=== PATIENT | female | born 1980 | race American Indian/Alaskan Native ===

== ENCOUNTER 2022-12-05 17:22 | Emergency (ER) | payer MEDICAID ==
[~2022-12-05] VITALS: Ht 160 cm; Wt 44.1 kg
[2022-12-05 18:06] VITALS: BP 115/76
[2022-12-05] MEDS ORDERED: bacitracin 15gm ointment TP ONE (19:50)
[2022-12-05] MEDS ORDERED: TETanus/Pertussis (Acell)/Diphther VAC/PF (Tdap-Adult) 0.5ml syringe IMVAC ONE (19:50)
[2022-12-05] MEDS ORDERED: CLIN-97 PO (20:00)
[2022-12-05] MEDS ORDERED: clindamycin 150mg capsule PO ONE (20:00)
== END 2022-12-05 20:13 | disposition home or self-care (01) ==
LOC: ER 17:24
DX: S90.852A Superficial foreign body, left foot, initial encounter (principal); Z91.040 Latex allergy status; Z79.899 Other long term (current) drug therapy; L02.612 Cutaneous abscess of left foot; W45.8XXA Other foreign body or object entering through skin, initial encounter; Y93.89 Activity, other specified; Y92.89 Other specified places as the place of occurrence of the external cause; Y99.8 Other external cause status
CPT/HCPCS: 73630; 90471; 90715; 99283; 99284

== ENCOUNTER 2023-01-02 17:40 | Emergency (ER) | payer MEDICAID ==
[~2023-01-02] VITALS: Ht 160 cm; Wt 45.0 kg
[~2023-01-02 17:40] MED LIST: CLIN-97 PO
[2023-01-02 17:47] VITALS: BP 124/77
[2023-01-02] MEDS ORDERED: predniSONE 20 mg tablet PO ONE (20:10)
[2023-01-02] MEDS ORDERED: albuterol 2.5 MG/3 ML nebule NEB ONE (20:10)
[2023-01-02] MEDS ORDERED: PRED10TA PO (20:12)
[2023-01-02] MEDS ORDERED: ALBU8HFA PO (20:12)
[2023-01-02] MEDS ORDERED: GUAI400T92 PO (20:12)
== END 2023-01-02 20:33 | disposition home or self-care (01) ==
LOC: ER 17:41
DX: R05.9 Cough, unspecified (principal); R07.9 Chest pain, unspecified; F17.200 Nicotine dependence, unspecified, uncomplicated; J44.9 Chronic obstructive pulmonary disease, unspecified; Z91.040 Latex allergy status; Z88.8 Allergy status to other drugs, medicaments and biological substances; Z79.899 Other long term (current) drug therapy
CPT/HCPCS: 71045; 94640; 99283; J7512; 94760

== ENCOUNTER 2023-01-04 08:16 | Emergency (ER) | payer MEDICAID ==
[~2023-01-04] VITALS: Ht 160 cm; Wt 44.0 kg
[~2023-01-04 08:16] MED LIST changes: +ALBU8HFA PO; +GUAI400T92 PO; +PRED10TA PO
[2023-01-04] MEDS ORDERED: ondansetron/PF 4mg/2ml inj IV ONE (09:35)
[2023-01-04] MEDS ORDERED: famotidine/PF 10 mg/ml inj IV ONE (09:35)
[2023-01-04] MEDS ORDERED: diphenhydrAMINE 50 mg/ml inj IV ONE (09:35)
[2023-01-04] MEDS ORDERED: normal saline 1000ml 1,000 ML IV ONE ×2 (09:35→10:45)
[2023-01-04 10:40] LABS: BASOPHILS % (AUTO) 0.2 % (0-1); EOSINOPHILS # (AUTO) 0.1 X10'3 (0-0.9); EOSINOPHILS % (AUTO) 0.5 % (0-6); HEMATOCRIT 41.5 % (35.0-45.0); HEMOGLOBIN 13.6 g/dl (12.0-16.0); LYMPHOCYTES # (AUTO) 3.8 X10'3 (1.1-4.8); LYMPHOCYTES % (AUTO) 23.1 % (21-51); MEAN CORPUSCULAR HEMOGLOBIN 29.5 PG (27.0-31.0); MEAN CORPUSCULAR HGB CONC 32.7 g/dL (33.0-36.5); MEAN CORPUSCULAR VOLUME 90.1 FL (78-98); MEAN PLATELET VOLUME 7.3 FL (7.4-10.4); MONOCYTES # (AUTO) 1.5 X10'3 (0-0.9); MONOCYTES % (AUTO) 9.3 % (2-12); NEUTROPHILS % (AUTO) 66.9 % (42-75); PLATELET COUNT 266 X10'3 (140-440); RED BLOOD COUNT 4.61 X10'6 (4.20-5.60); RED CELL DISTRIBUTION WIDTH 13.4 % (11.5-14.5); WHITE BLOOD COUNT 16.5 X10'3 (4.5-11.0)
[2023-01-04 10:48] LABS: ALANINE AMINOTRANSFERASE 20 U/L (12-78); ALBUMIN 3.3 G/DL (3.4-5.0); ALBUMIN/GLOBULIN RATIO 1.1 (1.1-1.5); ALKALINE PHOSPHATASE 68 IU/L (46-116); ANION GAP 11 (8-16); ASPARTATE AMINO TRANSFERASE 22 U/L (10-37); BILIRUBIN,TOTAL 0.3 MG/DL (0.1-1.0); BLOOD UREA NITROGEN 9 MG/DL (7-18); BUN/CREATININE RATIO 10.3 (10.0-20.0); CALCIUM 8.3 MG/DL (8.5-10.1); CHLORIDE 112 MMOL/L (99-107); CREATININE 0.87 MG/DL (0.40-0.90); GLUCOSE 90 MG/DL (70-104); POTASSIUM 3.2 MMOL/L (3.5-5.1); SODIUM 145 MMOL/L (135-145); TOTAL CARBON DIOXIDE 22.3 MMOL/L (24-32); TOTAL PROTEIN 6.2 G/DL (6.4-8.2); eGFR 72 ML/MIN
[2023-01-04] MEDS ORDERED: meclizine 12.5mg tablet PO ONE (11:20)
[2023-01-04] MEDS ORDERED: ONDA4TAB12 PO (11:44)
[2023-01-04] MEDS ORDERED: AZIT250T2 PO (11:44)
[2023-01-04 12:01] VITALS: BP 113/78
== END 2023-01-04 12:03 | disposition home or self-care (01) ==
LOC: ER 08:17
DX: R42 Dizziness and giddiness (principal); E86.0 Dehydration; R11.2 Nausea with vomiting, unspecified; J44.9 Chronic obstructive pulmonary disease, unspecified; Z91.040 Latex allergy status; Z88.1 Allergy status to other antibiotic agents; Z88.2 Allergy status to sulfonamides
CPT/HCPCS: 36415; 80053; 84484; 85025; 93005; 96361; 96374; 96375; 99285; J1200; J2405; J3490; J7030; J8597

== ENCOUNTER 2025-02-07 14:51 | Emergency (ER) | payer MEDICAID ==
[~2025-02-07] VITALS: Ht 160 cm; Wt 57.2 kg
[~2025-02-07 14:51] MED LIST changes: -ALBU8HFA PO; +CLIN-224 PO; -CLIN-97 PO; +ONDA-243 PO
[2025-02-07 15:48] LABS: MEAN PLATELET VOLUME 7.0 FL (7.4-10.4); RED CELL DISTRIBUTION WIDTH 13.5 % (11.5-14.5)
[2025-02-07 15:50] LABS: LEUKOCYTE ESTERASE ,URINE NEGATIVE (Neg); NITRITES, URINE NEGATIVE (Neg); OCCULT BLOOD,URINE TRACE-INTACT (Neg)
[2025-02-07 15:53] LABS: UA COLLECTION TYPE CLN CATCH MIDSTREAM
[2025-02-07 15:56] LABS: CREATININE 0.84 MG/DL (0.40-0.90); TOTAL CARBON DIOXIDE 23.2 MMOL/L (24-32); eCRCL 72 ML/MIN; eGFR 74 ML/MIN
[2025-02-07 15:58] LABS: MUCUS STRANDS NONE SEEN /LPF (Neg); SQUAMOUS EPITHELIAL CELL,UR FEW /LPF (FEW)
[2025-02-07 16:14] LABS: BANDS% (MANUAL) 5.0 % (0-10); EOSINOPHILS % (MANUAL) 1.0 % (0-6); LYMPHOCYTES % (MANUAL) 12.0 % (21-51); MONOCYTES % (MANUAL) 3.0 % (2-12); NEUTROPHILS % (MANUAL) 79.0 % (42-75); PLATELET ESTIMATE NORMAL
--- NOTE | 2025-02-07 16:42 | RADIOLOGY REPORT ---
CHEST RADIOGRAPH REASON FOR EXAM: SOB COMPARISON: None TECHNIQUE: One view of the chest is provided FINDINGS: The cardiomediastinal silhouette is within normal limits for technique. There is no focal a irspace disease. There is no significant pleural effusion. No acute bony abnormality is identified. IMPRESSION: No radiographic evidence of acute cardiopulmonary process.
[2025-02-07 17:13] VITALS: TEMP 98.7
[2025-02-07 19:18] VITALS: BP 100/64; PULSE 88; RESP 16; O2SAT 99
--- NOTE | 2025-02-07 20:22 | Physician Documentation ---
History of Present Illness Chief Complaint: Flank Pain Stated Complaint: POSSIBLE MENEGITIS Time Seen by MD: 19:23 OK to notify your PCP?: Yes Primary Medical Doctor: BERTRAM HOGAN Source: patient, RN/MD, RN notes reviewed, old records Mode of Arrival: POV, Ambulatory Exam Limitations: no limitations Medication Reconciliation Allergies: Coded Allergies: latex (Verified Allergy, Intermediate, rash/blisters, 02/07/25) Uncoded Allergies: PENICILLIN (Allergy, Intermediate, rash, 12/05/22) SULFA (Allergy, Intermediate, hives, 12/05/22) IODINE (IV) (Allergy, Unknown, 12/05/22) Scheduled Clindamycin HCL* (Clindamycin HCL*), 1 CAP PO Q6H Guaifenesin (Guaifenesin), 1 TAB PO Q8H Prednisone (Prednisone), 0 PO DAILY Scheduled PRN ONDANSETRON ODT 4mg tablet (Ondansetron Odt), 1 TABLET PO Q6H PRN for nausea/vomiting Past Medical History Past Medical History: COPD, *HEMATOLOGY* Past Surgical History: noncontributory Alcohol Use: Occasionally Drug Use: none Lives with: S/O Lives In: Home Review of Systems All Other Systems at this time: Reviewed and Negative Physical Exam Vital Signs: RN Vital Signs have been reviewed: Yes, Temperature: 98.7, Source: Oral, Heart Rate: 88, Respiratory Rate: 16, BP: 100/64, Pulse Oximetry: 99, Weight: 57.200 Oxygen Flow Rate: 0 Progress Results/Orders Results/Orders Vital Signs 02/07/25 02/07/25 02/07/25 02/07/25 15:10 16:17 17:13 19:18 Temp 98.7 98.7 Pulse 111 80 88 Resp 18 16 16 16 B/P (MAP) 105/68 99/63 (75) 100/64 (76) Pulse Ox 98 96 99 O2 Flow Rate 0 Laboratory Tests Test 02/07/25 15:18 02/07/25 15:35 Urine Specimen Description Cln catch midstream Urine Color Straw Urine Clarity Clear Urine pH 6.0 Urine Specific [place] <=1.005 Urine Protein Negative Urine Glucose (UA) Negative Urine Ketones Negative Urine Occult Blood Trace-intact Urine Nitrite Negative Urine Bilirubin Negative Urine Urobilinogen 0.2 Urine Leukocyte Esterase Negative Urine RBC 0-2 Urine WBC 0-4 Urine Squamous Epithelial Cells Few Urine Bacteria 1+ Urine Mucus None seen Urine Culture Indicated Not ind Volume Urine Centrifuged 10 ml Urine Comment White Blood Count 2.6 L Red Blood Count 4.83 Hemoglobin 14.4 Hematocrit 42.1 Mean Corpuscular Volume 87.2 Mean Corpuscular Hemoglobin 29.7 Mean Corpuscular Hemoglobin Concent 34.1 Red Cell Distribution Width 13.5 Platelet Count 189 Mean Platelet Volume 7.0 L Neutrophils (%) (Auto) 83.4 H Lymphocytes (%) (Auto) 13.0 L Monocytes (%) (Auto) 2.9 Eosinophils (%) (Auto) 0.3 Basophils (%) (Auto) 0.4 Neutrophils # (Auto) 2.1 Lymphocytes # (Auto) 0.3 L Monocytes # (Auto) 0.1 Eosinophils # (Auto) 0.0 Basophils # (Auto) 0.0 CBC Comment Differential Total Cells Counted 100 Neutrophils % (Manual) 79.0 H Band Neutrophils % 5.0 Lymphocytes % (Manual) 12.0 L Monocytes % (Manual) 3.0 Eosinophils % (Manual) 1.0 Platelet Estimate Normal Red Blood Cell Morphology Normal Basophilic Stippling Sodium Level 135 Potassium Level 3.5 Chloride Level 102 Carbon Dioxide Level 23.2 L Anion Gap 10 Blood Urea Nitrogen 5 L Creatinine 0.84 Estimated GFR/1.73 m2 74 BUN/Creatinine Ratio 6.0 L Glucose Level 104 Lactic Acid Level 0.6 Calcium Level 8.6 Albumin 3.5 Procalcitonin 0.21 Chemistry Comments Microbiology Date/Time Source Procedure Growth Status 02/07/25 15:37 Blood Arm Left Blood Culture - Preliminary NEGATIVE (LESS THAN 24 HOURS) Resulted Departure Referrals: NO PRIMARY CARE PROVIDER (PCP) Signature Attestation: The note accurately reflects work and decisions made by me.Ez Samuel MD 02/07/25 20:22 EZ SAMUEL MD Feb 07, 2025 20:22
[2025-02-07 20:34] LABS: URINE HCG NEGATIVE (NEG)
== END 2025-02-07 20:20 | disposition left against medical advice (07) ==
LOC: ER 14:51
DX: M54.50 Low back pain, unspecified (principal); M54.2 Cervicalgia; R51.9 Headache, unspecified; Z53.21 Procedure and treatment not carried out due to patient leaving prior to being seen by health care provider; Z88.0 Allergy status to penicillin; Z88.5 Allergy status to narcotic agent; Z91.040 Latex allergy status
CPT/HCPCS: 36415; 71045; 80048; 81001; 81025; 83605; 84145; 85007; 85025; 87040; 99284

== ENCOUNTER 2025-02-09 10:07 | Emergency (ER) | payer MEDICAID ==
[~2025-02-09] VITALS: Ht 160 cm; Wt 122.7 kg
[2025-02-09 10:10] VITALS: BP 132/69; PULSE 108; RESP 20; O2SAT 99
[2025-02-09 11:16] LABS: LEUKOCYTE ESTERASE ,URINE NEGATIVE (Neg); NITRITES, URINE NEGATIVE (Neg); OCCULT BLOOD,URINE TRACE-INTACT (Neg)
[2025-02-09 11:18] LABS: URINE HCG NEGATIVE (NEG)
[2025-02-09 11:23] LABS: UA COLLECTION TYPE CLN CATCH MIDSTREAM
[2025-02-09 11:24] LABS: SQUAMOUS EPITHELIAL CELL,UR MANY /LPF (FEW)
[2025-02-09] MEDS ORDERED: CIPR-20 PO ×2 (11:56→12:14)
--- NOTE | 2025-02-09 11:56 | Physician Documentation ---
History of Present Illness ~ Chief Complaint: Back Pain Stated Complaint: KIDNEY PAIN Time Seen by MD: 11:43 Primary Medical Doctor: BERTRAM HOGAN Medication Reconciliation Allergies: Coded Allergies: latex (Verified Allergy, Intermediate, rash/blisters, 02/09/25) Uncoded Allergies: PENICILLIN (Allergy, Intermediate, rash, 12/05/22) SULFA (Allergy, Intermediate, hives, 12/05/22) IODINE (IV) (Allergy, Unknown, 12/05/22) Scheduled Ciprofloxacin/Ciprofloxa Hcl (Ciprofloxacin Er 500 Mg Tablet), 1 TAB PO Q12H Ciprofloxacin/Ciprofloxa Hcl (Ciprofloxacin Er 500 Mg Tablet), 1 TAB PO DAILY Clindamycin HCL* (Clindamycin HCL*), 1 CAP PO Q6H Guaifenesin (Guaifenesin), 1 TAB PO Q8H Prednisone (Prednisone), 0 PO DAILY Scheduled PRN ONDANSETRON ODT 4mg tablet (Ondansetron Odt), 1 TABLET PO Q6H PRN for naus ea/vomiting Past Medical History Past Medical History: COPD, *HEMATOLOGY* Past Surgical History: noncontributory Alcohol Use: Occasionally Drug Use: none Lives with: S/O Lives In: Home Physical Exam Physical Exam Vital Signs: Temperature: 99.0, Source: Oral, Heart Rate: 108, Respiratory Rate: 20, BP: 132/69, Pulse Oximetry: 99, Weight: 122.700 Oxygen Flow Rate: 0 Progress Results/Orders Results/Orders Completed Orders - NOEMY MARQUEZ [employer] Ceftriaxone Im Kit W/Lidocaine (Rocephin (02/09/25 11:50) Vital Signs 02/09/25 02/09/25 10:10 12:18 Temp 99.0 99.0 Pulse 108 Resp 20 B/P (MAP) 132/69 Pulse Ox 99 O2 Flow Rate 0 Laboratory Tests Test 02/09/25 10:20 Urine Specimen Description Cln catch midstream Urine Color Yellow Urine Clarity Slightly cloudy Urine pH 7.0 Urine Specific [place] 1.010 Urine Protein 30 H Urine Glucose (UA) Negative Urine Ketones Trace H Urine Occult Blood Trace-intact Urine Nitrite Negative Urine Bilirubin Negative Urine Urobilinogen 0.2 Urine Leukocyte Esterase Negative Urine RBC 3-10 Urine WBC 0-4 Urine Squamous Epithelial Cells Many Urine Bacteria 2+ Urine Culture Indicated Not ind Volume Urine Centrifuged 10 ml Urine HCG, Qualitative Negative Urine Comment Medical Decision Making Findings This patient presents with symptoms consistent with acute uncomplicated cystitis. No systemic symptoms. Not septic. Well appearing. Low suspicion for acute pyelonephritis given lack of fever, CVAT, or systemic features. Low vishal picion for kidney stone or infected stone. Upreg negative so doubt ectopic pregnancy_. Low suspicion for ovarian torsion, PID, or appendicitis. Ciprofloxicin prescribed. Follow up with primary care provider return to the emergency any worsening of symptoms any additional concerning symptoms. Differential Dx:Considerations: Include: AAA, Aortic dissection, , Appendicitis, Bowel obstruction, Cholelithiasis, Cholangitis, DJD, Ectopic , Fracture, Hepatitis, HNP, Musculoskeletal pain, Pancreatitis, Pyelonephritis, Strain, Urinary obstruction, Urolithiasis, Ovarian torsion, Other Departure Disposition: HOME / SELF CARE / HOMELESS Impression: Primary Impression: UTI (urinary tract infection) Additional Impression: Dysuria Condition: Stable Discharge Instructions: Urinary Tract Infection, Adult, [id number] Additional Instructions: Evaluated for back pain and dysuria. He reported that you were previously seen at the injury and prescribed ciprofloxacin other the pharmacist would not fill your for ciprofloxacin due to a concern for an allergy that you stay you do not have. Prescribed ciprofloxacin to an additional pharmacy and noted that on your chart they do not have an allergy to ciprofloxacin or any other concerning allergies that would interfere with ciprofloxacin administration at this time. Primary care provider. Return to the emergency department if you have any worsening of symptoms or any additional concerning symptoms present i.e. fever nausea vomiting or worsening of back pain.. Referrals: NO PRIMARY CARE PROVIDER (PCP) Prescriptions Ciprofloxacin HCl (Ciprofloxacin HCl) 250 Mg Tablet 1 TAB PO Q12H for 7 Days, #14 TAB Prov: NOEMY MARQUEZ [employer] 02/09/25 Ciprofloxacin/Ciprofloxa Hcl (Ciprofloxacin Er 500 Mg Tablet) 500 Mg Tbmp.24hr 1 TAB PO DAILY for 5 Days, #5 TAB Prov: NOEMY MARQUEZ [employer] 02/09/25 Ciprofloxacin/Ciprofloxa Hcl (Ciprofloxacin Er 500 Mg Tablet) 500 Mg Tbmp.24hr 1 TAB PO Q12H for 7 Days, #14 TAB Prov: NOEMY MARQUEZ [employer] 02/09/25 Education Educated: Patient Educated regarding: treatment, need for follow up NOEMY MARQUEZ [facility] Feb 09, 2025 11:55
[2025-02-09] MEDS: CefTRIAXone 1000mg IM Kit (w/lidocaine diluent) IM ONE (12:13)
[2025-02-09 12:18] VITALS: TEMP 99
[2025-02-09] MEDS ORDERED: CIPR250T4 PO (21:13)
== END 2025-02-09 12:19 | disposition home or self-care (01) ==
LOC: ER 10:07
DX: N39.0 Urinary tract infection, site not specified (principal); R19.7 Diarrhea, unspecified; M54.9 Dorsalgia, unspecified; J44.9 Chronic obstructive pulmonary disease, unspecified; Z88.8 Allergy status to other drugs, medicaments and biological substances
CPT/HCPCS: 81001; 81025; 96372; 99283; J0696